=== PATIENT | male | born 1960 | race Caucasian/White ===

== ENCOUNTER 2021-07-04 10:45 | Emergency (ER) | payer MEDICARE ==
[2021-07-04] MEDS ORDERED: Sodium Chloride 0.9% 10 ML Syringe FLUSH PRN (11:00)
[2021-07-04] MEDS ORDERED: Aspirin 81 MG Tab.Chew PO ONE (11:00)
[2021-07-04] MEDS ORDERED: Heparin Sodium/D5W 25,000 UNITS/500 ML BAG IV SCH (12:00)
[2021-07-04] MEDS ORDERED: Heparin Sodium 5,000 Units/ML Vial IVPUSH ONE (12:00)
[2021-07-04] MEDS ORDERED: atorvaSTATin 40 MG Tab PO ONE (12:03)
[2021-07-04 13:41] LABS: CORONAVIRUS COVID-19 NAA NEGATIVE (NEGATIVE)
== END 2021-07-04 14:47 ==
LOC: JD.ED 10:45
DX: I21.4 Non-ST elevation (NSTEMI) myocardial infarction (principal); Z91.048 Other nonmedicinal substance allergy status; Z20.822 Contact with and (suspected) exposure to COVID-19
CPT/HCPCS: 0240U; 36415; 71045; 80053; 83735; 84484; 85025; 85379; 85610; 93005; 96365; 96366; 99285; A9270; J1644; 93010

== ENCOUNTER 2024-03-01 06:44 | Day surgery (SDC) | payer MEDICARE ==
[~2024-03-01 06:44] MED LIST: Sodium Chloride 0.9% 10 ML Syringe FLUSH PRN; Sodium Chloride 0.9% 10 ML Syringe FLUSH SCH
[2024-03-01] MEDS ORDERED: Propofol 200 MG/20 ML SDV ONE ×2 (06:47→07:34)
[2024-03-01] MEDS ORDERED: fentaNYL 100 MCG/2 ML SDV ONE (06:47)
[2024-03-01] MEDS ORDERED: Lidocaine 1% 4 ML ONE (06:47)
[2024-03-01] MEDS: Lactated Ringers 1,000 ML IV SCH (07:10)
== END 2024-03-01 08:17 | disposition home or self-care (01) ==
LOC: JD.SDS 06:44
PROVIDERS: ATTEND Surgery
DX: Z12.11 Encounter for screening for malignant neoplasm of colon (principal); Z86.0100 Personal history of colon polyps, unspecified; I10 Essential (primary) hypertension; E78.00 Pure hypercholesterolemia, unspecified; I25.2 Old myocardial infarction; Z95.5 Presence of coronary angioplasty implant and graft; F17.210 Nicotine dependence, cigarettes, uncomplicated; Z79.899 Other long term (current) drug therapy; Z85.038 Personal history of other malignant neoplasm of large intestine
CPT/HCPCS: G0105; J2704; J3010; J7120; J3490

== ENCOUNTER 2024-06-01 16:46 | Inpatient (IN) | payer MEDICARE, OTHER ==
[2024-06-01] MEDS ORDERED: Ondansetron 4 MG/2 ML SDV IV PRN (16:49)
[2024-06-01] MEDS ORDERED: Acetaminophen 325 MG Tab PO PRN (16:49)
[2024-06-01] MEDS ORDERED: oxyCODONE 5 MG Tab PO PRN (16:49)
[2024-06-01] MEDS ORDERED: Sodium Chloride 0.9% 1,000 ML IV SCH (17:00)
[2024-06-01] MEDS: Heparin Sodium 5,000 Units/ML Vial SUBCUT SCH (17:21)
[2024-06-01] MEDS: Sodium Chloride 0.9% 1,000 ML IV ONE (17:23)
[2024-06-01] MEDS: Sodium Chloride 0.9% 1,000 ML IV SCH (18:25)
[2024-06-01] MEDS: Calcium Carbonate 500 MG Tab.Chew PO PRN (18:34)
[2024-06-02 04:43] LABS: HEMATOCRIT 37.6 % (42.0-52.0); HEMOGLOBIN 12.7 gm/dl (14.0-18.0); MEAN CORPUSCULAR HEMOGLOBIN 30.6 pg (28.0-32.0); MEAN CORPUSCULAR HGB CONC 33.8 g/dl (32.0-36.0); MEAN CORPUSCULAR VOLUME 90.6 fl (83.0-99.0); MEAN PLATELET VOLUME 10.3 fl (9.4-12.4); PLATELET COUNT,PLT 120 K/mm3 (150-400); RED BLOOD CELL COUNT 4.15 M/mm3 (4.52-5.90); WHITE BLOOD CELL COUNT,WBC 7.04 K/mm3 (3.9-11.3)
[2024-06-02 05:42] LABS: A/G RATIO 0.9 (1-2); ALBUMIN 2.6 g/dl (3.4-5.0); ANION GAP 18.4 (5-15); BILIRUBIN TOTAL 0.6 mg/dL (0.2-1.0); BUN/CREATININE RATIO 8.1 (14-18); C-REACTIVE PROTEIN 10.1 mg/dL (<0.30); CALCIUM 7.4 mg/dL (8.5-10.1); CREATININE 4.2 mg/dL (0.7-1.3); EST CRCL DRUG DOSING (CG) 16.96 mL/min; POTASSIUM,K 3.4 mEq/L (3.5-5.1); PROTEIN TOTAL,TP 5.4 g/dl (6.4-8.2)
[2024-06-02] MEDS: Clopidogrel 75 MG Tab PO SCH (08:09)
[2024-06-02] MEDS: Aspirin 81 MG Tab.EC PO SCH (08:09)
[2024-06-02] MEDS: Loperamide 2 MG Cap PO PRN (11:24)
[2024-06-02 12:28] LABS: ANION GAP 14.9 (5-15); CALCIUM 7.6 mg/dL (8.5-10.1); CREATININE 4.6 mg/dL (0.7-1.3); EST CRCL DRUG DOSING (CG) 15.49 mL/min; POTASSIUM,K 2.9 mEq/L (3.5-5.1)
[2024-06-02] MEDS: Potassium Chloride 20 MEQ Tab.ER PO ONE (13:33)
[2024-06-02] MEDS: Sodium Chloride 0.9% 1,000 ML IV SCH (18:20)
[2024-06-02 18:35] LABS: ANION GAP 15.5 (5-15); BUN/CREATININE RATIO 8.3 (14-18); CALCIUM 7.8 mg/dL (8.5-10.1); CREATININE 4.7 mg/dL (0.7-1.3); EST CRCL DRUG DOSING (CG) 15.16 mL/min; POTASSIUM,K 3.5 mEq/L (3.5-5.1)
[2024-06-03 04:50] LABS: HEMATOCRIT 35.6 % (42.0-52.0); HEMOGLOBIN 11.9 gm/dl (14.0-18.0); MEAN CORPUSCULAR HEMOGLOBIN 30.9 pg (28.0-32.0); MEAN CORPUSCULAR HGB CONC 33.4 g/dl (32.0-36.0); MEAN CORPUSCULAR VOLUME 92.5 fl (83.0-99.0); MEAN PLATELET VOLUME 10.7 fl (9.4-12.4); PLATELET COUNT,PLT 130 K/mm3 (150-400); RED BLOOD CELL COUNT 3.85 M/mm3 (4.52-5.90); WHITE BLOOD CELL COUNT,WBC 5.19 K/mm3 (3.9-11.3)
[2024-06-03 05:27] LABS: A/G RATIO 0.9 (1-2); ALBUMIN 2.5 g/dl (3.4-5.0); ANION GAP 16.5 (5-15); BILIRUBIN TOTAL 0.5 mg/dL (0.2-1.0); BUN/CREATININE RATIO 8.6 (14-18); C-REACTIVE PROTEIN 8.22 mg/dL (<0.30); CALCIUM 7.7 mg/dL (8.5-10.1); EST CRCL DRUG DOSING (CG) 14.25 mL/min; POTASSIUM,K 3.5 mEq/L (3.5-5.1); PROTEIN TOTAL,TP 5.2 g/dl (6.4-8.2)
[2024-06-03] MEDS ORDERED: Sodium Chloride 0.9% 1,000 ML IV SCH (16:00)
[2024-06-03] MEDS ORDERED: Sennosides/Docusate Sodium 50-8.6 MG Tab PO PRN (17:18)
[2024-06-03 18:15] LABS: APPEARANCE,URINE CLEAR (Clear); BILIRUBIN,URINE NEGATIVE (Negative); COLOR,URINE LIGHT YELLOW (Yellow); GLUCOSE,URINE NEGATIVE (Negative); KETONES,URINE NEGATIVE (Negative); LEUKOCYTE ESTERASE,URINE NEGATIVE (Negative); NITRITE,URINE NEGATIVE (Negative); OCCULT BLOOD,URINE 2+ (Negative); PROTEIN,URINE 1+ (Negative); UROBILINOGEN,URINE 0.2 (0.2-1.0)
[2024-06-03 18:35] LABS: CREATININE,URINE RAND 19.3 mg/dL (30.0-125.0); PROTEIN CREATININE RATIO,URINE 1984.5 mg/g (0-149); PROTEIN,URINE RANDOM 38.3 mg/dL (0.0-11.8)
[2024-06-03 18:38] LABS: RBC,URINE 0-5 /hpf (0-5); WBC,URINE 0-5 /hpf (0-5)
[2024-06-03 18:40] LABS: BACTERIA,URINE FEW /hpf (FEW); EPITHELIAL CELLS,URINE 0-5 /hpf (0-5); MUCUS,URINE FEW /hpf (FEW)
[2024-06-04 07:01] LABS: A/G RATIO 0.9 (1-2); ALBUMIN 2.3 g/dl (3.4-5.0); ANION GAP 17.5 (5-15); BILIRUBIN TOTAL 0.5 mg/dL (0.2-1.0); BUN/CREATININE RATIO 9.4 (14-18); CALCIUM 7.8 mg/dL (8.5-10.1); CREATININE 5.2 mg/dL (0.7-1.3); EST CRCL DRUG DOSING (CG) 13.7 mL/min; PHOSPHORUS 3.9 mg/dL (2.6-4.7); POTASSIUM,K 3.5 mEq/L (3.5-5.1)
== END 2024-06-04 15:03 | disposition home or self-care (01) | DRG 684 ==
LOC: JD.MS 16:46
PROVIDERS: ADMIT Internal Medicine; ATTEND Student in an Organized Health Care Education/Training Program
DX: N17.1 Acute kidney failure with acute cortical necrosis (principal); I25.10 Atherosclerotic heart disease of native coronary artery without angina pectoris; N18.9 Chronic kidney disease, unspecified; I71.43 Infrarenal abdominal aortic aneurysm, without rupture; I12.9 Hypertensive chronic kidney disease with stage 1 through stage 4 chronic kidney disease, or unspecified chronic kidney disease; H91.90 Unspecified hearing loss, unspecified ear; E78.00 Pure hypercholesterolemia, unspecified; R74.8 Abnormal levels of other serum enzymes; R19.7 Diarrhea, unspecified; Z85.038 Personal history of other malignant neoplasm of large intestine; Z98.890 Other specified postprocedural states; Z79.82 Long term (current) use of aspirin; Z79.02 Long term (current) use of antithrombotics/antiplatelets; Z79.899 Other long term (current) drug therapy; I25.2 Old myocardial infarction; Z95.5 Presence of coronary angioplasty implant and graft
CPT/HCPCS: 36415; 71045; 71045-26; 80048; 80053; 81001; 82570; 83735; 84100; 84156; 85027; 86140; 87045; 87046; 87493; 87899; A9270-GY; J1644; J7030